=== PATIENT | male | born 1960 | race Caucasian/White ===

== ENCOUNTER 2025-01-10 00:33 | Day surgery (SDC) | payer BC, SELFPAY ==
[2024-12-29 13:59] VITALS: BMI 28.1
--- OUTSIDE RECORDS SUMMARY | 2025-01-10 00:36 | XMS_ITS | Clinical Summary ---
Author Organization [facility] [employer] Address [address] [place] [address] Care Team Providers Care Screen Roller Name Role Phone Arnoldo Molina MD Unavailable Unavailable Raghavendra Delvalle MD Primary Care Provider + Source Comments [facility] [employer]non-owned Affiliates and Associated Physician Practices is amultiple site organization consisting of ambulatory clinics and hospital sitesin [place], [place], [place] and [place]. This disclosure is being madepursuant to the Care Everywhere program and may not contain all information available regarding this patient. Last updated 18.[facility] [employer] Allergies No known active allergies Medications * Be aware that medications may not be up to date on this document. Alwaysverify current medications with the patient. traMADol (ULTRAM) 50 MG tablet Take 100 mg by mouth at bedtime. Active methotrexate (RHEUMATREX) 2.5 MG tabletIndication s:RA (rheumatoid arthritis) (HCC) Take 8 Tabs by mouth every 7 days before meal. 32 Tab 6 08/30/2011 Active folic acid (FOLVITE) 1 MG tabletIndication s:RA (rheumatoid arthritis) (HCC) Take 1 Tab by mouth once daily. 30 Tab 12 08/30/2011 Active predniSONE (DELTASONE) 5 MG tabletIndication s:RA (rheumatoid arthritis) (HCC) Take 1-2 Tabs by mouth once daily. 30 Tab 6 10/14/2011 Active Active Problems Problem Noted Date Diagnosed Date High risk medications (not anticoagulants) long- term use 10/14/2011 Overview (10/14/2011): .10/14/2011 never started MTX RA (rheumatoid arthritis) 08/30/2011 Family History Medical History Relation Name Comments CAD (Coronary Artery Disease) Father Relation Name Status Comments Father Social History Tobacco Use Types Packs/Day Years Used Date Smoking Tobacco: Former Cigarettes Q uit: 06/25/2010 Alcohol Use Standard Drinks/Week Comments No 0 (1 standard drink = 0.6 oz pur e alcohol) Sex and Gender Information Value Date Recorded Sex Assigned at Not on file Legal Sex Male 12:56 PM SHREDDER PICKER Gender Identity Not on file Sexual Orientation Not on file 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 Not on file Not on file Not on file Last Filed Vital Signs Vital Sign Reading Time Taken Comments Blood Pressure 150/90 10/14/2011 11:11 AM SHREDDER PICKER Pulse 86 10/14/2011 11:11 AM SHREDDER PICKER Temperature - - Respiratory Rate - - Oxygen Saturation - - Inhaled Oxygen Concentration - - Weight 73.9 kg (163 lb) 10/14/2011 11:11 AM SHREDDER PICKER Height 170.2 cm (5' 7 ) 10/14/2011 11:11 AM SHREDDER PICKER Body Mass Index 25.53 10/14/2011 11:11 AM SHREDDER PICKER Plan of Treatment Health Maintenance Due Date Last Done Comments COLOGUARD (AGES 45-75) - COL ON CA SCREENING 1960 COLON MONITORING 1960 COLONOSCOPY - COLON CA SCREENING 1962 CT COLONOGRAPHY - COLON CA SCREENING 1960 Colorectal Cancer Screening 1960 FIT - COLON CA SCREENING 1962 FLEX SIG - COLON CA SCREENING 1962 LIPID TESTING 1960 HIV SCREENING 1977 HEPATITIS C SCREENING 05/16/1980 DTAP/TDAP/TD VACCINES (1 - Tdap) 1981 PNEUMOCOCCAL VACCINE 50+ (1 of 1 - PCV) 2012 ZOSTER VACCINE (1 of 2) 2012 COVID-19 VACCINE (1 - 2023-2 5 season) 2024 DEPRESSION SCREENING 08/25/2024 INFLUENZA VACCINE (Season Ended) 2025 Respiratory Syncytial Virus (RSV) Vaccine Pt: or over 60 yrs (1 - 1-dose 75+ series) 2037 HEPATITIS B VACCINE Aged Out No longe r eligible based on patient's age to complete this topic HIB VACCINE Aged Out No longer eligi ble based on patient's age to complete this topic HPV VACCINE Aged Out No longer eligi ble based on patient's age to complete this topic MENINGOCOCCAL (Group B) VACC INE SHARED DECISION-MAKING Aged Out No longer eligibl e based on patient's age to complete this topic MENINGOCOCCAL GROUPS A/C/Y/W VACCINE Aged Out No longer eligible b ased on patient's age to complete this topic Care Teams Screen Roller Relationship Specialty Start Date End Date Raghavendra Delvalle MD [address] [address] PCP - General Family Medicine 08/30/11 Arnoldo Molina MD Rheumatology 08/29/11
[2025-01-10 08:16] VITALS: BP 128/70; PULSE 68; RESP 18; TEMP 35.8; O2SAT 98
[2025-01-10] MEDS: LACTATED RINGERS 1,000 ML 150 ML IV CONT (08:29)
--- NOTE | 2025-01-10 08:53 | WPDANESEPPF ---
Anes - Initial Pre Proc Eval Procedure: Operation Date: 01/10/25 09:30 Proposed Procedures p Colonoscopy - Dustin Oliver MD Date/Time: 01/10/25 08:53 Surgeon: Dustin Oliver MD Pre Op Diagnosis: screening malignant neoplasm of colon Patient Data Age: 64 Gender: M Height: 1.73 m Weight: 70.7 kg Last Vital Signs Temp 35.8 C L 01/10/25 08:16 Pulse 68 01/10/25 08:16 Resp 18 01/10/25 08:16 BP 128/70 01/10/25 08:16 Pulse Ox 98 01/10/25 08:16 O2 Del Method Room Air 01/10/25 08:16 Allergies Allergy/AdvReac Type Severity Reaction Status Date / Time diclofenac AdvReac Unknown Joint Pain Verified 01/10/25 08:15 Home Medications Medication Instructions Recorded Confirmed Type atorvastatin 40 mg tablet 40 mg PO DAILY #30 tabs 02/27/24 01/10/25 Rx amlodipine 10 mg tablet 10 mg PO DAILY #30 tabs 04/23/24 01/10/25 Rx lisinopril 40 mg tablet 40 mg PO DAILY #30 tabs 05/03/24 01/10/25 Rx Patient hx anesthesia problems: none Family hx anesthesia problems: none Results Review: All pre-operative results and documents have been reviewed as part of the pre-operative evaluation. [facility] Family History Family History Father Hypertension Acute myocardial infarction Heart disease Mother Hypertension Sibling Hypertension Other Asthma Social History Social History (Updated 03/15/22 @ 09:00 by Shirley Fernandes MA) Smoking packs per day: 1 Smoking cigarettes per day: 20.0 Years smoked: 30 Smoking pack-years: 30.00 Smoking status: Former smoker Tobacco type: cigarettes Second hand tobacco smoke exposure: No Smoking end date: 06/27/10 Alcohol intake: current Drinks per week: 1 Alcohol use details: Occasionally on the weekend Substance use: never Substance use type: does not use Living arrangements: with family Occupation/Education: occupation Gender identity (if verbalized by the patient): Male Sexual Orientation (if Verbalized by the Patient): Straight or Heterosexual Spiritual care concerns: No Agree to blood products: Yes Anes - Eval Final PreProcedure Day of Procedure 01/10/25 08:53 Patient weight: normal Heart: regular rate and rhythm Lungs: decreased breath sounds Airway: Mallampati scale class II Neurological: alert and oriented Last oral intake: >/= 8 hours ASA classification: III Emergent: no Anesthetic plan: proceed Anesthesia type and monitoring: general GIVS and standard monitoring Results Review: All pre-operative results and documents have been reviewed as part of the pre-operative evaluation. Informed Consent: The patient's anesthetic plan and its attendant risks and benefits were discussed with the patient/family/POA. Questions were solicited and answers provided to the satisfaction of the patient/family/POA.
--- NOTE | 2025-01-10 09:02 | PM.HPGS ---
History of Present Illness History of Present Illness Consent: Risks, benefits, and alternatives have been discussed and questions answered. Patient agrees to proceed with procedure. Chief complaint: screening malignant neoplasm of colon Narrative: Fabrizio Platt is a 64 year old male here for screening colonoscopy, last one 13 years ago Review of Systems Review of Systems: All systems reviewed & are unremarkable except as noted in HPI and below PMFSH Family History Family History Father Hypertension Acute myocardial infarction Heart disease Mother Hypertension Sibling Hypertension Other Asthma Social History Social History (Updated 03/15/22 @ 09:00 by Shirley Fernandes MA) Smoking packs per day: 1 Smoking cigarettes per day: 20.0 Years smoked: 30 Smoking pack-years: 30.00 Smoking status: Former smoker Tobacco type: cigarettes Second hand tobacco smoke exposure: No Smoking end date: 06/27/10 Alcohol intake: current Drinks per week: 1 Alcohol use details: Occasionally on the weekend Substance use: never Substance use type: does not use Living arrangements: with family Occupation/Education: occupation Gender identity (if verbalized by the patient): Male Sexual Orientation (if Verbalized by the Patient): Straight or Heterosexual Spiritual care concerns: No Agree to blood products: Yes Meds Home Medications and Allergies Home Medications Medication Instructions Recorded Confirmed Type atorvastatin 40 mg tablet 40 mg PO DAILY #30 tabs 02/27/24 01/10/25 Rx amlodipine 10 mg tablet 10 mg PO DAILY #30 tabs 04/23/24 01/10/25 Rx lisinopril 40 mg tablet 40 mg PO DAILY #30 tabs 05/03/24 01/10/25 Rx Allergies Allergy/AdvReac Type Severity Reaction Status Date / Time diclofenac AdvReac Unknown Joint Pain Verified 01/10/25 08:15 Vital Signs Vital Signs - 24 hr 01/10/25 08:16 Temperature 96.5 F L Pulse Rate 68 Respiratory Rate 18 Blood Pressure 128/70 Pulse Oximetry 98 Oxygen Delivery Room Air Exam Const: General: comfortable and no acute distress HENMT: Face/Nose/Sinus: Normal nares present Eyes: General: appearance normal, both eyes and all related structures Neck: Neck: no JVD Resp: Auscultation: clear to auscultation bilaterally Cardio: Rate: regular rate Rhythm: regular rhythm GI: Inspection: non-distended GI Palp: Yes Soft to palpation Skin: General skin exam: normal color Neuro: General: gait normal Speech: normal speech Extrem: General: normal to inspection Psych: Mental Status: mental status grossly normal
--- NOTE | 2025-01-10 09:06 | PM.HPGS ---
History of Present Illness History of Present Illness Consent: Risks, benefits, and alternatives have been discussed and questions answered. Patient agrees to proceed with procedure. Chief complaint: screening malignant neoplasm of colon Narrative: Fabrizio Platt is a 64 year old male here for screening colonoscopy, last one 13 years ago Review of Systems Review of Systems: All systems reviewed & are unremarkable except as noted in HPI and below PMFSH Past Medical History Medical History (Updated 01/10/25 @ 09:06 by Dustin Oliver MD) Colon cancer screening Family History Family History Father Hypertension Acute myocardial infarction Heart disease Mother Hypertension Sibling Hypertension Other Asthma Social History Social History (Updated 03/15/22 @ 09:00 by Shirley Fernandes MA) Smoking packs per day: 1 Smoking cigarettes per day: 20.0 Years smoked: 30 Smoking pack-years: 30.00 Smoking status: Former smoker Tobacco type: cigarettes Second hand tobacco smoke exposure: No Smoking end date: 06/27/10 Alcohol intake: current Drinks per week: 1 Alcohol use details: Occasionally on the weekend Substance use: never Substance use type: does not use Living arrangements: with family Occupation/Education: occupation Gender identity (if verbalized by the patient): Male Sexual Orientation (if Verbalized by the Patient): Straight or Heterosexual Spiritual care concerns: No Agree to blood products: Yes Meds Home Medications and Allergies Home Medications Medication Instructions Recorded Confirmed Type atorvastatin 40 mg tablet 40 mg PO DAILY #30 tabs 02/27/24 01/10/25 Rx amlodipine 10 mg tablet 10 mg PO DAILY #30 tabs 04/23/24 01/10/25 Rx lisinopril 40 mg tablet 40 mg PO DAILY #30 tabs 05/03/24 01/10/25 Rx Allergies Allergy/AdvReac Type Severity Reaction Status Date / Time diclofenac AdvReac Unknown Joint Pain Verified 01/10/25 08:15 Vital Signs Vital Signs - 24 hr 01/10/25 08:16 Temperature 96.5 F L Pulse Rate 68 Respiratory Rate 18 Blood Pressure 128/70 Pulse Oximetry 98 Oxygen Delivery Room Air Exam Const: General: comfortable and no acute distress HENMT: Face/Nose/Sinus: Normal nares present Eyes: General: appearance normal, both eyes and all related structures Neck: Neck: no JVD Resp: Auscultation: clear to auscultation bilaterally Cardio: Rate: regular rate Rhythm: regular rhythm GI: Inspection: non-distended GI Palp: Yes Soft to palpation Skin: General skin exam: normal color Neuro: Speech: normal speech Extrem: General: normal to inspection Psych: Mental Status: mental status grossly normal Assessment and Plan Assessment and plan (1) Colon cancer screening: Code(s): Z12.11 - Encounter for screening for malignant neoplasm of colon Status: Acute Assessment and Plan: colonoscopy
[2025-01-10 09:16] VITALS: BP 80/47; PULSE 70; RESP 18; O2SAT 95
[2025-01-10 09:26] VITALS: BP 99/74; PULSE 69; RESP 24; O2SAT 97
[2025-01-10 09:36] VITALS: BP 115/76; PULSE 70; RESP 18; O2SAT 98
== END 2025-01-10 09:50 | disposition home or self-care (01) ==
PROVIDERS: PCP Family Medicine Adolescent Medicine; Referring Provider Family Medicine Adolescent Medicine; Visit Provider Internal Medicine Gastroenterology
PROC: 0DJD8ZZ Inspection of Lower Intestinal Tract, Via Natural or Artificial Opening Endoscopic (ICD-10-PCS; CPT 45378; principal; 2025-01-10 09:30)
DX: Z12.11 Encounter for screening for malignant neoplasm of colon (principal); K57.30 Diverticulosis of large intestine without perforation or abscess without bleeding; K64.8 Other hemorrhoids; Z87.891 Personal history of nicotine dependence
CPT/HCPCS: 45378; J2003; J2704; J7120

== ENCOUNTER 2025-04-08 08:40 | Outpatient (CLI) | payer BC, SELFPAY ==
--- NOTE | 2025-04-08 08:44 | EST_ITS ---
Patient Info Name: Fabrizio Platt Age: 64 years : 1960 Gender: Male Ht: 67 in Wt: 162 lbs BSA: 1.87 m2 Exam Date: 04/08/2025 9:00 AM Patient Status: O Admit Date: 04/08/2025 Exam Type: CA stress echo Treadmill exercise stress echocardiogram is performed. Law Firm Administrator: Allie Steel Attending Provider: Raghavendra Delvalle MD Exercise Technologist: Chrissy Rivera Exercise Physician: Ferny Kimbrough DO Summary 1. 1. Negative Justo exercise stress test for ischemic ST changes by ECG criteria. 2. 2. Reduced functional capacity, achieving 7 METs of workload. 3. 3. Baseline hypertension. 4. 4. Appropriate HR response to exercise. 5. 5. Appropriate HR recovery at 1 minute post exercise. 6. 6. Negative stress echocardiogram for ischemia by wall motion analysis. 7. 7. Patient informed of the above results. Stress Echo Findings Left Ventricle Appropriate increase in LV endocardial thickening with systole. Appropriate augmentation of contractility with systole. No wall motion abnormality. Left Ventricle Normal LV systolic function, no wall motion abnormality. Protocol: Justo Stress ECG Details Stage: REST Duration (min): 1 min : 57 sec Speed (mph): 0.0 Grade (%): 0 HR (bpm): 59 SBP (mmHg): 163 DBP (mmHg): 84 METS: --- Stage: REST Duration (min): 7 min : 37 sec Speed (mph): 0.0 Grade (%): 0 HR (bpm): 69 SBP (mmHg): 163 DBP (mmHg): 84 METS: --- Stage: RECOVERY Duration (min): 1 min : 57 sec Speed (mph): 0.0 Grade (%): 0 HR (bpm): 102 SBP (mmHg): 168 DBP (mmHg): 77 METS: --- Stage: RECOVERY Duration (min): 2 min : 57 sec Speed (mph): 0.0 Grade (%): 0 HR (bpm): 71 SBP (mmHg): 201 DBP (mmHg): 72 METS: --- Stage: RECOVERY Duration (min): 3 min : 57 sec Speed (mph): 0.0 Grade (%): 0 HR (bpm): 69 SBP (mmHg): 201 DBP (mmHg): 72 METS: --- Stage: RECOVERY Duration (min): 4 min : 57 sec Speed (mph): 0.0 Grade (%): 0 HR (bpm): 69 SBP (mmHg): 150 DBP (mmHg): 67 METS: --- Stage: RECOVERY Duration (min): 5 min : 10 sec Speed (mph): 0.0 Grade (%): 0 HR (bpm): --- SBP (mmHg): 150 DBP (mmHg): 67 METS: --- Stage: STAGE 1 Duration (min): 1 min : 0 sec Speed (mph): 1.7 Grade (%): 10 HR (bpm): 97 SBP (mmHg): 163 DBP (mmHg): 84 METS: --- Stage: STAGE 1 Duration (min): 2 min : 0 sec Speed (mph): 1.7 Grade (%): 10 HR (bpm): 107 SBP (mmHg): 163 DBP (mmHg): 84 METS: --- Stage: STAGE 1 Duration (min): 3 min : 0 sec Speed (mph): 1.7 Grade (%): 10 HR (bpm): 116 SBP (mmHg): 179 DBP (mmHg): 69 METS: --- Stage: STAGE 2 Duration (min): 1 min : 0 sec Speed (mph): 2.5 Grade (%): 12 HR (bpm): 126 SBP (mmHg): 179 DBP (mmHg): 69 METS: --- Stage: STAGE 2 Duration (min): 2 min : 0 sec Speed (mph): 2.5 Grade (%): 12 HR (bpm): 141 SBP (mmHg): 178 DBP (mmHg): 71 METS: --- Stage: STAGE 2 Duration (min): 3 min : 0 sec Speed (mph): 2.5 Grade (%): 12 HR (bpm): 144 SBP (mmHg): 178 DBP (mmHg): 71 METS: --- Stage: STAGE 3 Duration (min): 0 min : 2 sec Speed (mph): 0.0 Grade (%): 0 HR (bpm): 145 SBP (mmHg): 178 DBP (mmHg): 71 METS: --- Stage: RECOVERY Duration (min): 0 min : 57 sec Speed (mph): 0.0 Grade (%): 0 HR (bpm): 125 SBP (mmHg): 168 DBP (mmHg): 77 METS: --- Rest HR: 69 bpm Peak HR: 147 bpm Rest Sys BP: 163 mmHg Peak Sys BP: 201 mmHg Max Pred HR: 158 bpm % Max Pred HR: 93 % Target HR: 134 bpm Max RPP: 29,547 bpm*mmHg Hernandez Score: 1 Termination Reason: Reached target heart rate or workload Cardiac Symptoms: Shortness of breath Max ST Seg Deviation: 1 mm Total Time: 6 min : 2 sec Rest Cooper BP: 84 mmHg Peak Cooper BP: 72 mmHg Angina Score: None Total METS: 7.1 Resting ECG Sinus rhythm. Stress ECG No ST changes. Arrhythmias None. Report Signatures Stress ECG Echo
--- OUTSIDE RECORDS SUMMARY | 2025-04-08 08:44 | XMS_ITS | Clinical Summary ---
Author Organization [facility] [employer] Address [address] [place] [place] [address] Care Team Providers Care Machine Tool Technology Instructor Name Role Phone Arnoldo Molina MD Unavailable Unavailable Raghavendra Delvalle MD Primary Care Provider + Source Comments [facility] [employer],non-owned Affiliates and Associated Physician Practices is amultiple site organization consisting of ambulatory clinics and hospital sitesin [place], [place], [place] and [place]. This disclosure is being madepursuant to the Care Everywhere program and may not contain all information available regarding this patient. Last updated 18.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 Not on file Not on file Last Filed Vital Signs Vital Sign Reading Time Taken Comments Blood Pressure 150/90 10/14/2011 11:11 AM RADIOLOGY ASSISTANT Pulse 86 10/14/2011 11:11 AM RADIOLOGY ASSISTANT Temperature - - Respiratory Rate - - Oxygen Saturation - - Inhaled Oxygen Concentration - - Weight 73.9 kg (163 lb) 10/14/2011 11:11 AM RADIOLOGY ASSISTANT Height 170.2 cm (5' 7) 10/14/2011 11:11 AM RADIOLOGY ASSISTANT Body Mass Index 25.53 10/14/2011 11:11 AM RADIOLOGY ASSISTANT Plan of Treatment Health Maintenance Due Date [...] season) 2024 DEPRESSION SCREENING 08/25/2024 INFLUENZA VACCINE (#1) 2025 Respiratory Syncytial Virus (RSV) Vaccine Pt: [...] age to complete this topic Care Teams Machine Tool Technology Instructor Relationship Specialty Start Date End Date Raghavendra Delvalle MD [address] [address] PCP - General Family Medicine 08/30/11 Arnoldo Molina MD Rheumatology 08/29/11
== END 2025-04-08 08:41 | disposition home or self-care (01) ==
PROVIDERS: PCP Family Medicine Adolescent Medicine; Visit Provider Family Medicine Adolescent Medicine
DX: R06.00 Dyspnea, unspecified (principal)
CPT/HCPCS: 93351; 97110; 97116; 97530